=== PATIENT | male | born 1955 | race American Indian/Alaskan Native ===

== ENCOUNTER 2017-02-03 06:50 | Emergency (ER) | payer SELFPAY ==
[2017-02-03 08:04] LABS: Basophils % (Auto) 0.6 % (0.0-1.8); Eosinophils % (Auto) 5.1 % (0.0-4.3); Hematocrit 47.6 % (35.5-45.6); Hemoglobin 15.5 gm/dl (11.8-15.2); Mean Corpuscular HGB Conc 33 % (32-34); Mean Corpuscular Hemoglobin 29 pg (28-32); Mean Corpuscular Volume 90 fl (84-94); Platelet Count 169 K/mm3 (140-440); Red Blood Count 5.32 M/mm3 (3.65-5.03); Red Cell Distribution Width 15.2 % (13.2-15.2); White Blood Count 6.5 K/mm3 (4.5-11.0)
[2017-02-03 08:04] LABS: Urine Drugs of Abuse Note Disclamer
[2017-02-03 08:12] LABS: Anion Gap 16 mmol/L; Blood Urea Nitrogen 7 mg/dL (9-20); Calcium 9.2 mg/dL (8.4-10.2); Carbon Dioxide 28 mmol/L (22-30); Chloride 103.6 mmol/L (98-107); Glucose 86 mg/dL (75-100); Potassium 3.9 mmol/L (3.6-5.0); Sodium 144 mmol/L (137-145)
[2017-02-03 08:18] LABS: Bilirubin,Urine NEG (Negative); Blood,Urine NEG (Negative); Ketones,Urine TR mg/dL (Negative); Leukocyte Esterase,Urine NEG (Negative); Mucus,Urine 3+ /HPF; Nitrite,Urine NEG (Negative); Protein,Urine <15 mg/dL mg/dL (Negative)
[2017-02-03] MEDS ORDERED: DUONEB *Not for PRN Use IH ONE (09:06)
--- NOTE | 2017-02-03 09:13 | Emergency Department Report ---
HPI - General Chief Complaint: Psych Time Seen by Provider: 02/03/17 08:56 - HPI HPI: This is a 61-year-old Afro-[place] male who presents to the emergency department via EMS with complaint of depression and suicidal ideations. The patient originally asked to go to [facility] but was told he needed to come here for medical clearance and placement. He has been having some depression over the past few days and has been having suicidal thoughts to the point where he says "if I did not get some help today then I would do whatever I had to to make it stop." He denies any definitive plan. He denies any auditory or visual hallucinations or any homicidal ideations. He does admit to history of depression and bipolar disorder and says that he takes citalopram and Abilify but they are "not working." He does not have a primary care doctor or psychiatrist. No recent travel or sick contacts at home. He admits to occasional illicit drug use and admits to using methamphetamine and cocaine yesterday. ED Past Medical Hx - Past Medical History Hx Hypertension: Yes Hx Psychiatric Treatment: Yes (SEVERE DEPRESSION / ANXIETY / BIPOLAR) - Surgical History Additional Surgical History: left knee surgery - Social History Smoking Status: Current Every Day Smoker Substance Use Type: Alcohol, Cocaine, Heroin, Marijuana - Medications Home Medications: Home Medications Medication Instructions Recorded Confirmed Last Taken Type Atenolol [Tenormin] 25 mg PO DAILY 04/02/16 02/03/17 Unknown History Citalopram 40 mg PO ONCE 02/03/17 02/03/17 Unknown History ED Review of Systems ROS: Stated complaint: EVAL Other details as noted in HPI Comment: All other systems reviewed and negative Constitutional: denies: chills, fever Eyes: denies: eye pain, eye discharge, vision change ENT: denies: ear pain, throat pain Respiratory: denies: cough, shortness of breath, wheezing Cardiovascular: denies: chest pain, palpitations Gastrointestinal: denies: abdominal pain, nausea, diarrhea Genitourinary: denies: urgency, dysuria Musculoskeletal: denies: back pain, joint swelling, arthralgia Skin: denies: rash, lesions Neurological: denies: headache, weakness, paresthesias Psychiatric: depression, suicidal thoughts. denies: auditory hallucinations, visual hallucinations, homicidal thoughts Physical Exam - Physical Exam Vital Signs: Vital Signs 02/03/17 07:13 Temperature 97.6 F Pulse Rate 79 Respiratory 18 Rate Blood Pressure 161/115 O2 Sat by Pulse 100 Oximetry Physical Exam: GENERAL: The patient is well-developed well-nourished. HEENT: Normocephalic. Atraumatic. Extraocular motions are intact. Patient has moist mucous membranes. Pupils equal reactive to light bilaterally. NECK: Supple. Trachea is midline. CHEST/LUNGS: Clear to auscultation. There is no respiratory distress noted. HEART/CARDIOVASCULAR: Regular. There is no tachycardia. There is no gallop rub or murmur. ABDOMEN: Abdomen is soft, nontender. Patient has normal bowel sounds. There is no abdominal distention. SKIN: There is no rash. There is no edema. There is no diaphoresis. NEURO: The patient is awake, alert, and oriented. The patient is cooperative. The patient has no focal neurologic deficits. The patient has normal speech. MUSCULOSKELETAL: There is no tenderness or deformity. There is no limitation range of motion. There is no evidence of acute injury. ED Course Vital Signs 02/03/17 07:13 Temperature 97.6 F Pulse Rate 79 Respiratory 18 Rate Blood Pressure 161/115 O2 Sat by Pulse 100 Oximetry ED Medical Decision Making - Lab Data Result diagrams: 02/03/17 07:33 02/03/17 07:33 - Medical Decision Making 61-year-old male presents to the emergency department with complaint of depression, suicidal ideations and admission of polysubstance abuse. The last time he used the illicit drugs was yesterday. Patient is awake and alert and does not appear in any acute distress. Due to his depression and suicidal ideation, the patient has been made a 1013. The rest the patient's labs are unremarkable and he appears medically cleared for psychiatric placement. - Differential Diagnosis bipolar disorder, schizoaffective, schizophrenia, polysubstance abuse Critical Care Time: No Critical care attestation.: If time is entered above; I have spent that time in minutes in the direct care of this critically ill patient, excluding procedure time. ED Disposition Clinical Impression: Polysubstance abuse, Suicidal ideations Depression Qualifiers: Depression Type: unspecified Qualified Code(s): F32.9 - Major depressive disorder, single episode, unspecified Hypertension Qualifiers: Hypertension type: essential hypertension Qualified Code(s): I10 - Essential ( primary) hypertension Disposition: DC/TX-65 PSY HOSP/PSY UNIT Is pt being admited?: No Condition: Stable Instructions: Hypertension (ED) Referrals: PRIMARY CARE, [Primary Care Provider] - 3-5 Days Time of Disposition: 12:39
--- NOTE | 2017-02-03 09:35 | XRay Report ---
AP CHEST: HISTORY: Cough AP view of the chest demonstrates a normal mediastinal and cardiac contour with clear lungs and normal bony and soft tissue structures. IMPRESSION: Unremarkable AP chest.
[2017-02-03] MEDS ORDERED: CATAPRES PO ONE (12:38)
[2017-02-03] MEDS ORDERED: ATIVAN PO ONE (13:33)
--- NOTE | 2017-02-03 16:51 | Consultation ---
History of Present Illness - Reason for Consult Consult date: 02/03/17 Reason for consult: suicidal ideation, substance use - Chief Complaint Chief complaint: "I was suicidal" This is a 61-year-old male who presented to the emergency department via EMS with complaint of depression and suicidal ideation. The patient originally asked to go to [facility] but was told he needed to come here for medical clearance and placement. He has been at [facility] and inpatient treatment 2 x in the past 6 months. He admits to occasional illicit drug use and admits to using methamphetamine and cocaine yesterday. He reports drinking one pint of liquor a day x 5 days. Prior to that he was drinking 1-2 every few days. He reports his girlfriend was released from shelter 01/27 and she began using drugs. Then he thought his dealer was flirting with his girlfriend. He began having thoughts of harming his drug dealer and himself. He continues to have these thoughts of hurting himself and the dealer with a knife. No psychotic symptoms reported or elicited. ED Past Medical Hx - Past Medical History Hx Hypertension: Yes Hx Psychiatric Treatment: Yes (SEVERE DEPRESSION / ANXIETY / BIPOLAR) - Surgical History Additional Surgical History: left knee surgery - Social History Smoking Status: Current Every Day Smoker Substance Use Type: Alcohol, Cocaine, Heroin (on Suboxone maintenance treatment , Marijuana Medications and Allergies Allergies Allergy/AdvReac Type Severity Reaction Status Date / Time No Known Allergies Allergy Verified 02/03/17 07:12 Home Medications Medication Instructions Recorded Confirmed Last Taken Type Atenolol [Tenormin] 25 mg PO DAILY 04/02/16 02/03/17 Unknown History Citalopram 40 mg PO ONCE 02/03/17 02/03/17 Unknown History Past psychiatric history - past Psychiatric treatment and history Psych: Addictions, Depression Mental Status Exam - Vital signs Last Vital Signs Temp 97.6 F 02/03/17 07:13 Pulse 88 02/03/17 13:34 Resp 18 02/03/17 13:34 BP 144/92 02/03/17 13:34 Pulse Ox 100 02/03/17 07:13 - Exam Orientation: time, place, person Affect: depressed Mood: congruent with affect Thought content: other (SI/HI, plan with a knife) Thought Process: Intact Perceptions: none Speech: normal rate and pattern Concentration: focused Motor activity: normal Level of consciousness: alert Memory: Intact Sleep Symptoms: Difficulty Falling Asleep Appetite: decreased Interaction: cooperative Results Result Diagrams: 02/03/17 07:33 02/03/17 07:33 Abnormal lab results 02/03/17 02/03/17 Range/Units 07:33 07:33 RBC 5.32 H (3.65-5.03) M/mm3 Hgb 15.5 H (11.8-15.2) gm/dl Hct 47.6 H (35.5-45.6) % Snyder % (Auto) 7.5 H (0.0-7.3) % Eos % (Auto) 5.1 H (0.0-4.3) % BUN 7 L (9-20) mg/dL Creatinine 0.7 L (0.8-1.5) mg/dL All other labs normal. Assessment and Plan Assessment and plan: Impression: Suicidal ideation and Homicidal ideation with a plan to use a knife Substance use disorder (methamphetamine and cocaine) Alcohol use d/o MDD with psychotic features in the past. Recommendation: 1013 and transfer to inpatient psychiatry Start Celexa 10mg daily (he has not been compliant)-for depression Start Abilify 5mg daily to augment Celexa for the treatment of depression.
[2017-02-04] MEDS ORDERED: celeXA ONE (07:31)
[2017-02-04] MEDS: LIBRIUM PO PRN ×4 (07:36→16:07)
[2017-02-04 07:44] VITALS: BP 136/86
[2017-02-04] MEDS ORDERED: HABITROL TD ONE (08:30)
[2017-02-04] MEDS ORDERED: ABILIFY PO SCH (10:00)
[2017-02-04] MEDS ORDERED: celeXA PO SCH (10:00)
--- NOTE | 2017-02-04 10:25 | Progress Note ---
Subjective - Reason for Consult Consult date: 02/04/17 Reason for consult: Psychiatry Follow-up - Chief Complaint Chief complaint: "My head isn't right" This is a 61-year-old male who presented to the emergency department via EMS with complaint of depression and suicidal ideation. Today patient is calm and cooperative during assessment. He stated that his life is in "shambles" and need to stay off the drugs and alcohol. He stated that his "woman" disrespects him on a regular basis and this was last time. He denies HI's, but stated being suicidal without a plan. He denies AVH's, but rate his depression a 6/10, with 10 being the worse. Patient stated his last drink of alcohol (etoh) was 2 days prior to being admitted to [facility]. Patient denies any side effect of his medications. Mental Status Exam - Vital signs Last Vital Signs Temp 98.1 F 02/04/17 07:30 Pulse 89 02/04/17 07:30 Resp 16 02/04/17 07:30 BP 136/86 02/04/17 07:30 Pulse Ox 100 02/04/17 07:30 - Exam Narrative exam: MSE: Appearance: calm, cooperative Behavior: good eye contact Speech: regular rate and tone Mood: "feel bad" Affect: labile Thought Process: linear Thought Content: denies SI/HI's and AVH's Motor Activity: ambulatory Cognition: A/Ox 3 Insight: fair Judgment: limited Assessment and Plan Impression: Historical Dx: MDD, Alcohol Use DO, Substance Use DO (amphetamines, cocaine, and marijuana). Today patient is calm and cooperative during assessment. Mild to moderate tremors (Etoh). Recommendation: Continue 1013 and transfer to inpatient psy services. Continue Celexa 10mg daily (he has not been compliant)-for depression and Abilify 5mg daily to augment Celexa for the treatment of depression. Discussed possible suicidality/medicaton induced chelo with patient reference antidepressants. Discussed possible metabolic side effects of Abilify. Continue CIWA.
== END 2017-02-04 18:47 ==
LOC: ED 06:50 → EEVIPCON 06:50 → ED 02-04 18:47
DX: R45.851 Suicidal ideations (principal); F32.9 Major depressive disorder, single episode, unspecified; I10 Essential (primary) hypertension; F19.10 Other psychoactive substance abuse, uncomplicated; F41.9 Anxiety disorder, unspecified; F17.200 Nicotine dependence, unspecified, uncomplicated; F14.10 Cocaine abuse, uncomplicated; F12.10 Cannabis abuse, uncomplicated; F11.10 Opioid abuse, uncomplicated
CPT/HCPCS: 36415; 71010; 80048; 80307; 81001; 85025; 94640; 99285; G0480; 80320